=== PATIENT | female | born 2000 | race Caucasian/White ===

== ENCOUNTER 2025-04-13 08:56 | Emergency (ER) | payer OTHER, SELFPAY ==
--- OUTSIDE RECORDS SUMMARY | 2025-04-13 09:06 | XMS_ITS | Clinical Summary ---
Author Organization [facility] ([facility]) [email or web address] Address [address] [employer] [address] Care Team Providers Care Interior Design Consultant Name Role Phone Unavailable Primary Care Provider Unavailabl e Active Problems No known active problems Encounters Date Type Department Care Team Description 04/02/2025 External Device Data STL ABSTRACTION Provider, Abstract 04/02/2025 Results Follow-Up [facility] [employer] [place] [address] [place] [address] Lizabeth Hdz, ANP TSH, LIPID PANEL, COMPREHENSIVE METABOLIC PANEL, CBC WITH DIFFERENTIAL 04/01/2025 10:40 AM CDT Office Visit [facility] [employer] [place] [address] [place] [address] Screening for condition (Primary Dx) 01/22/2025 External Device Data STL ABSTRACTION Provider, Abstract from Last 3 Months Social History Tobacco Use Types Packs/Day Years Used Date Smoking Tobacco: Never Assessed Comments Unknown Sex and Gender Information Value Date Recorded Sex Assigned at Not on file Legal Sex Female 6:52 AM CDT Gender Identity Not on file Sexual Orientation Not on file Last Filed Vital Signs Vital Sign Reading Time Taken Comments Blood Pressure 116/74 04/01/2025 10:51 AM CDT Pulse - - Temperature - - Respiratory Rate - - Oxygen Saturation - - Inhaled Oxygen Concentration - - Weight 98.9 kg (218 lb) 02/03/2024 10:47 AM CDT Height 160 cm (5' 3) 02/03/2024 10:47 AM CDT Body Mass Index 38.62 02/03/2024 10:47 AM CDT Plan of Treatment Health Maintenance Due Date Last Done Comments HPV VACCINES (1 - 3-dose series) 2014 DTAP/TDAP/TD VACCINES (1 - Tdap) 2018 HEPATITIS B VACCINES (1 of 3 - 19+ 3-dose series) 10/2018 CERVICAL CANCER SCREENING 2020 HPV/Cotest (21-29) 2020 PAP SMEAR 2020 INFLUENZA VACCINE (#1) 2025 Procedures Procedure Name Priority Date/Time Associated Diagnosis Comments CBC WITH DIFFERENTIAL Routine 04/01/2025 10:31 AM CDT Screening for condition COMPREHENSIVE METABOLIC PANEL Routine 04/01/2025 10:31 AM CDT Screening for condition LIPID PANEL Routine 04/01/2025 10:31 AM CDT Screening for condition TSH Routine 04/01/2025 10:31 AM CDT Screening for condition from Last 3 Months Results * (ABNORMAL) CBC WITH DIFFERENTIAL (04/01/2025 10:31 AM CDT) WBC 6.9 3.8 - 10.8 Thousand/ uL [facility] RBC 4.40 3.80 - 5.10 Million/u L [facility] HEMOGLOBIN 12.6 11.7 - 15.5 g/dL [facility] HEMATOCRIT 39.7 35.0 - 45.0 % [facility] MCV 90.2 80.0 - 100.0 fL [facility] MCH 28.6 27.0 - 33.0 pg [facility] MCHC 31.7(L) 32.0 - 36.0 g/dL [facility] Comment: For adults, a slight decrease in the calculated MCHC value (in the range of 30 to 32 g/dL) is most likely not clinically significant; however, it should be interpreted with caution in correlation with other red cell parameters and the patient's clinical condition. RDW 11.9 11.0 - 15.0 % [facility] PLATELETS 264 140 - 400 Thousand/ uL [facility] MPV 9.7 7.5 - 12.5 fL [facility] NEUTROPHIL ABSOLUTE 5,168 1,500 - 7,800 cells/uL [facility] LYMPHOCYTE ABSOLUTE 1,208 850 - 3,900 cells/uL [facility] MONOCYTE ABSOLUTE 442 200 - 950 cells/uL [facility] EOSINOPHIL ABSOLUTE 41 15 - 500 cells/uL [facility] BASOPHILS ABSOLUTE 41 0 - 200 cells/uL [facility] NEUTROPHIL 74.9 % [facility] LYMPHOCYTES 17.5 % [facility] MONOCYTE 6.4 % [facility] EOSINOPHILS 0.6 % [facility] BASOPHILS 0.6 % [facility] Comment: Test Performed at: [facility] [place] [address] [address] [phone] [facility] Blood 04/01/2025 10:3 1 AM CDT 04/01/2025 10:07 PM CDT Lizabeth Hdz ANP HEMATOLOGY ORDERABLES Final Result [facility] [phone] [place] [address] [address] [phone] * TSH (04/01/2025 10:31 AM CDT) TSH 1.10 mIU/L [facility] alisa Davila Comment: Reference Range > or = 20 Years 0.40-4.50 Ranges First trimester 0.26-2.66 Second trimester 0.55-2.73 Third trimester 0.43-2.91 Test Performed at: [facility] [place] [address] [address] [phone] [facility] Blood 04/01/2025 10:3 1 AM CDT 04/01/2025 10:07 PM CDT Lizabeth Hdz ANP CHEMISTRY ORDERABLES Final R esult [facility] [phone] [place] [address] [address] [phone] * (ABNORMAL) LIPID PANEL (04/01/2025 10:31 AM CDT) [facility] CHOLESTEROL 119 <200 mg/dL [facility] HDL 48(L) > OR = 50 mg/dL [facility] TRIGLYCERIDE 35 <150 mg/dL [facility] LDL CALCULATED 61 mg/dL (calc) [facility] Comment: Reference range: <100 Desirable range <100 mg/dL for primary prevention; <70 mg/dL for patients with CHD or diabetic patients with > or = 2 CHD risk factors. LDL-C is now calculated using the Robert calculation, which is a validated novel method providing better accuracy than the Friedewald equation in the estimation of LDL-C. Prabhu GARCÍA et al. DIDI. 2013;310(19): 4305-3470 (http://education.Clearwire/faq/XUV586) CHOL/HDL RATIO 2.5 <5.0 (calc) [facility] NON-HDL CHOLESTEROL 71 <130 mg/dL (calc) [facility] Comment: For patients with diabetes plus 1 major ASCVD risk factor, treating to a non-HDL-C goal of <100 mg/dL (LDL-C of <70 mg/dL) is considered a therapeutic option. Test Performed at: [facility] [place] [address] [address] [phone] [facility] Blood 04/01/2025 10:3 1 AM CDT 04/01/2025 10:07 PM CDT us Lizabeth Hdz ANP CHEMISTRY ORDERABLES Final R esult [facility] [phone] [place] [address] [address] [phone] * COMPREHENSIVE METABOLIC PANEL (04/01/2025 10:31 AM CDT) [facility] GLUCOSE 86 65 - 99 mg/dL [facility] Davila Comment: Fasting reference interval BUN 13 7 - 25 mg/dL [facility] CREATININE 0.56 0.50 - 0.96 mg/dL [facility] GFR 130 > OR = 60 mL/min/1. 73m2 [facility] BUN/CREAT RATIO SEE NOTE: 6 - 22 (calc) [facility] Comment: Not Reported: BUN and Creatinine are within reference range. SODIUM 140 135 - 146 mmol/L [facility] POTASSIUM 4.4 3.5 - 5.3 mmol/L [facility] CHLORIDE 107 98 - 110 mmol/L [facility] Mar[facility] CO2 24 20 - 32 mmol/L [facility] Mar[facility] CALCIUM 8.9 8.6 - 10.2 mg/dL [facility] TOTAL PROTEIN 6.2 6.1 - 8.1 g/dL [facility] ALBUMIN 4.0 3.6 - 5.1 g/dL [facility] GLOBULIN 2.2 1.9 - 3.7 g/dL (calc) [facility] ALBUMIN/GLOBULIN RATIO 1.8 1.0 - 2.5 (calc) [facility] BILIRUBIN TOTAL 0.4 0.2 - 1.2 mg/dL [facility] ALKALINE PHOSPHATASE 60 31 - 125 U/L [facility] AST 15 10 - 30 U/L [facility] ALT 13 6 - 29 U/L [facility] Comment: Test Performed at: [place] [address] [address] [id number] [facility] Blood 04/01/2025 10:3 1 AM CDT 04/01/2025 10:07 PM CDT us Lizabeth Hdz ANP CHEMISTRY ORDERABLES Final R esult [facility] [phone] [place] [address] [address] [phone] from Last 3 Months Insurance [employer] [place] [facility] [employer] [facility] [place] ALLEGIANCE OPEN ACCESS
--- OUTSIDE RECORDS SUMMARY | 2025-04-13 09:06 | XMS_ITS | Encounter Summary ---
Author Organization [facility] Address [address] [place] [address] Care Team Providers Care Cage Clerk Name Role Phone Unavailable Primary Care Provider Unavailabl e Encounter Details Date Type Department Care Team (Latest Contact Info) Description 04/02/2025 Results Follow-Up [facility] [employer] [place] [address] [place] [address] Lizabeth Hdz, ANP [id number] [facility] [address] [place] [address] TSH, LIPID PANEL, COMPREHENSIVE METABOLIC PANEL, CBC WITH DIFFERENTIAL Social History Tobacco Use Types Packs/Day Years Used Date Smoking Tobacco: Never Assessed Comments Unknown Sex and Gender Information Value Date Recorded Sex Assigned at Not on file Legal Sex Female 6:52 AM CDT Gender Identity Not on file Sexual Orientation Not on file documented as of this encounter Miscellaneous Notes * Result Encounter Note - Essence Perera RN - 04/02/2025 11:13 AM CDT Patient returned phone call and message regarding lab results was relayed. Patient verbalized understanding. * Result Encounter Note - Essence Perera RN - 04/02/2025 11:12 AM CDT Left voicemail for patient to call back regarding lab results. * Result Encounter Note - Lizabeth Hdz ANP - 04/02/2025 7:23 AM CDT Contact patient regarding result. Labs normal. No concerns. Share with PCP. documented in this encounter Plan of Treatment Not on file documented as of this encounter Visit Diagnoses Not on filedocumented in this encounter
[2025-04-13 09:11] VITALS: BP 133/77; PULSE 98; RESP 16; TEMP 36.6; O2SAT 99
[2025-04-13 09:22] LABS: EDSTREPNEGPOS1 Negative (Negative)
--- NOTE | 2025-04-13 09:39 | ED.URI ---
HPI - URI/Sore Throat General Chief Complaint: Upper Respiratory Infection Stated Complaint: sore throat / headache Time Seen by Provider: 04/13/25 09:15 Source: patient and RN notes reviewed Mode of arrival: ambulatory Limitations: no limitations History of Present Illness HPI Narrative: 24-year-old female presents Express Care complaining of sore throat, headache, cough, congestion for 2 days. Patient denies any fevers, body aches, chills nausea vomiting, diarrhea, chest pain, shortness of breath, other symptoms. Patient has been taking Tylenol help with symptoms. Patient denies any significant past medical history. Related Data Home Medications ?Medication ?Instructions ?Recorded ?Confirmed ?Last Taken ?Type No Home Medications 04/13/25 04/13/25 Unknown History Allergies Allergy/AdvReac Type Severity Reaction Status Date / Time No Known Allergies Allergy Verified 04/13/25 09:10 Review of Systems Review of Systems: CONSTITUTIONAL: Denies fever, chills, body aches, or sweats. EYES: Denies visual changes, redness, or discharge. ENT: Positive for congestion, sore throat. Negative for rhinorrhea or otalgia. CARDIOVASCULAR: Denies chest pain, palpitations, or edema. RESPIRATORY: Positive for cough. Negative for dyspnea. GASTROINTESTINAL: Denies abdominal pain, nausea, vomiting, or diarrhea. GENITOURINARY: Denies dysuria or hematuria. SKIN: Denies rash or itching. MUSCULOSKELETAL: Denies back pain, joint pain, or myalgia. NEUROLOGIC: Denies headache, numbness, or weakness. PSYCHIATRIC: Denies anxiety or depression. All other systems reviewed are negative, except as documented in HPI. PMFSH Comments At the time of my signature, I reviewed and agree with the nursing past medical, surgical, social, and family history. There is no relevant family history pertinent to the patient complaint. Exam Narrative: GENERAL: This is a well-nourished, well-developed adult, in no apparent distress. They are non ill-appearing, nontoxic appearing. HEAD: normocephalic, atraumatic. EYES: Sclera clear/white. Vision is grossly intact. Conjunctiva normal bilaterally. Extraocular movements intact. EARS: External ears normal, auditory canals clear and without drainage, TMs without erythema or perforation. Hearing grossly intact. NOSE: External nose normal with no obvious nasal discharge, nasal turbinates erythematous, no rhinorrhea. THROAT: Mucous membranes moist, posterior pharynx erythematous without exudate. Uvula is midline. Postnasal drip present. NECK: Neck supple, non-tender without lymphadenopathy, masses or thyromegaly. CARDIOVASCULAR: Regular rate and rhythm without murmurs, gallops, or rubs. RESPIRATORY: Clear to auscultation. Breath sounds equal bilaterally. No wheezes, rales, or rhonchi. SKIN: warm, Dry, intact with no suspicious lesions or rash, good texture and turgor. NEURO: awake, alert, and oriented to person, place and time. There were no obvious focal neurologic abnormalities. EXTREMITIES: No joint tenderness, effusion, or edema noted. BACK: Nontender without deformity. Course Course Emergency Course: Portions of this record may have been created with voice recognition software Level of Care: Express Care Visit Vital Signs Vital signs: Vital Signs Temperature 97.8 F 04/13/25 09:11 Pulse Rate 98 04/13/25 09:11 Respiratory Rate 16 04/13/25 09:11 Blood Pressure 133/77 04/13/25 09:11 Pulse Oximetry 99 04/13/25 09:11 Oxygen Delivery Room Air 04/13/25 09:11 Temperature 97.8 F 04/13/25 09:11 Pulse Rate 98 04/13/25 09:11 Respiratory Rate 16 04/13/25 09:11 Blood Pressure 133/77 04/13/25 09:11 Pulse Oximetry 99 04/13/25 09:11 Oxygen Delivery Room Air 04/13/25 09:11 MDM - URI/Sore Throat MDM Narrative Medical decision making narrative: Rapid strep negative. A throat culture is pending. Symptoms likely viral in etiology. Discussed physical exam findings. Advised supportive measures and signs/symptoms to go to the ER. Pt is appropriate for outpt treatment and f/u. Differential Diagnosis Differential diagnosis: Likely upper respiratory infection, viral infection and pharyngitis Lab Data Attestation: I reviewed the patient's lab results. Labs: Lab Results 04/13/25 Range/Units 09:10 POC Grp A Strep Screen Negative (Negative) Discharge Plan Discharge Clinical Impression: Upper respiratory infection Qualifiers: URI type: unspecified viral URI Qualified Code(s): J06.9 - Acute upper respiratory infection, unspecified Patient Disposition: Home Condition: Stable Instructions: Antibiotic Form, Upper Respiratory Infection (ED) Additional Instructions: Your rapid strep swab was negative today at [facility]. You will be notified in a few days if the culture comes back positive for strep, and appropriate antibiotics will be called in for you at that time. Your symptoms are likely due to a viral illness, which is not treated with antibiotics. Viral symptoms can be present for up to 10-14 days. Take Tylenol or ibuprofen for fever or pain. Follow the instructions on the bottle. Rest and stay hydrated. Follow up with your PCP in 3-5 days if symptoms are not improving. Go to the ER immediately if you develop difficulty breathing or swallowing Patient Language: Luxembourgish Prescriptions: No Action No Home Medications Follow-up/Referrals: PHYSICIAN,TUNNEL MAN [Primary Care Provider, Internal Medicine] Stand Alone Forms: Work/School Release IP Time of Disposition: 09:28
== END 2025-04-13 09:35 | disposition home or self-care (01) ==
DX: J06.9 Acute upper respiratory infection, unspecified (principal)
CPT/HCPCS: 87081; 87880; 99203; G0463